=== PATIENT | female | born 1990 | race Caucasian/White ===

== ENCOUNTER 2016-03-07 16:13 | Emergency (ER) | payer OTHER ==
[~2016-03-07] VITALS: Ht 172.7 cm; Wt 77.1 kg
[2016-03-07 16:25] VITALS: BP 124/76
--- NOTE | 2016-03-07 16:51 | Emergency Room Report ---
History of Present Illness General Chief Complaint: Skin Rash/Abscess Source: Patient Present Illness HPI 25-year-old female presents emergency Department with itchy rash under the left breast x4 days. Patient also reports that she noticed a palpable lump in the left breast about one week ago. Patient states she has a history of benign breast mass 4 years ago. Patient denies night sweats, changes in appetite significant changes in weight. She denies erythema of the breast, increased temperature palpation or severe tenderness of the breast . Denies N/V/F/C. Denies CP, Palpitations, LOC, AMS, dizziness, Changes in Vision, Sensation, paresthesias, or a sudden severe headache. Allergies: Coded Allergies: SHELLFISH DERIVED (Verified Allergy, Unknown, 03/07/16) Patient History Past Medical History: see triage record Past Surgical History: none Pertinent Family History: none Last Menstrual Period: 02/17/16 Now: No Immunizations: UTD Reviewed Nursing Documentation: PMH: Agreed, PSxH: Agreed Nursing Documentation-PMH Past Medical History: No History, Except For Review of Systems All Other Systems: negative except mentioned in HPI Physical Exam Vital Signs Date Time Temp Pulse Resp B/P Pulse Ox O2 Delivery O2 Flow Rate FiO2 03/07/16 16:18 98.1 74 14 124/76 99 Room Air Sp02 EP Interpretation: reviewed, normal General Appearance: no apparent distress, alert, GCS 15, non-toxic Head: normocephalic, atraumatic Eyes: bilateral eye PERRL, bilateral eye normal inspection ENT: hearing grossly normal, no angioedema, normal voice Neck: full range of motion, supple/symm/no masses Respiratory: chest non-tender, lungs clear, normal breath sounds, speaking full sentences Cardiovascular #1: regular rate, rhythm, no edema Cardiovascular #2: 2+ carotid (R), 2+ carotid (L), 2+ radial (R), 2+ radial (L) , 2+ dorsalis pedis (R), 2+ dorsalis pedis (L) Gastrointestinal: no rebound Musculoskeletal: gait/station normal, normal range of motion, non-tender, no calf tenderness Neurologic: alert, oriented x3, responsive, motor strength/tone normal, sensory intact, speech normal Psychiatric: judgement/insight normal, memory normal, mood/affect normal, no suicidal/homicidal ideation Skin: normal color, no rash, warm/dry, well hydrated, rash - macerated/ hyperpigmented rash under the left breast only in the fold noted, no evidence of secondary infection at this time, no erythema, no increased temperature to palpation. , other - small o.3cm soft palpable and freely mobile mass palpated in the 3 o'clock position of the left breast, no evidence of infection noted. Lymphatic: no adenopathy Medical Decision Making PA Attestation Dr. Mcintosh is my supervising Physician whom patient management has been discussed with. Diagnostic Impression: Primary Impression: Rash and other nonspecific skin eruption Additional Impression: Breast mass, left ER Course Pt. presents to the ED c/o rash under the left breast x 4 days, itchy. in additon to palpable left breast mass x 1 week, no fevers , chills, lesions, erythema. Ddx considered but are not limited to cellulitis, scabies, shingles, varicella, dermatitis, urticaria, eczema, tinea, fibroma, breast abscess, cancer. Vital signs: are WNL, pt. is afebrile H&PE are most consistent with fungal infection under the left breast. small o.3cm soft palpable and freely mobile mass palpated in the 3 o'clock position of the left breast, no evidence of infection noted. no LAD. ORDERS: none required at this time, the diagnosis is clinical ED INTERVENTIONS: None required at this time. -D/W with the patient that she would need to follow up with [facility] her PCP for ultrasound evaluation of palpable mass. DISCHARGE: At this time pt. is stable for d/c to home. Will provide printed patient care instructions, and any necessary prescriptions. Care plan and follow up instructions have been discussed with the patient prior to discharge. Last Vital Signs Date Time Temp Pulse Resp B/P Pulse Ox O2 Delivery O2 Flow Rate FiO2 03/07/16 16:25 98.1 85 14 124/76 99 Room Air Disposition: HOME, SELF-CARE Condition: Stable Scripts Nystatin* (NYSTATIN*) 15 Gm Cream..g. 1 APPLIC TOPIC THREE TIMES A DAY, #15 GM Prov: Rebecca Ponce 03/07/16 Patient Instructions: Breast Self-Awareness, Rash Additional Instructions: Take medications as directed. Follow up with PCP in 3-5 days Follow up with OBGYN or PCP for ultrasound evaluation of the left breast Return sooner to ED if new symptoms occur, or current symptoms become worse. Rebecca Ponce. Mar 07, 2016 16:51
[2016-03-07] MEDS ORDERED: NYSTATIN15 GM TOPIC (16:52)
[2016-03-07 17:21] VITALS: BP 124/76
== END 2016-03-07 17:21 | disposition home or self-care (01) ==
LOC: EMR 17:10
DX: R21 Rash and other nonspecific skin eruption (principal); N63 Unspecified lump in breast; Z91.013 Allergy to seafood
CPT/HCPCS: 99282